=== PATIENT | male | born 1970 | race American Indian/Alaskan Native ===

== ENCOUNTER 2017-03-08 08:29 | Emergency (ER) | payer MEDICAID, OTHER ==
[2017-03-08 08:37] VITALS: BMI 24.3
[2017-03-08 08:38] VITALS: RESP 18
--- NOTE | 2017-03-08 09:09 | C.PDOC ---
History Of Present Illness 46-year-old male, denies significant PMHx, presents to the emergency department with complaints of penile injury. Patient states he sustained an injury to his penis at 12:00 this morning during sex. States "my partner landed on it funny." Patient immediately developed swelling and deformity to the penile shaft. He is currently complaining of persistent swelling on top and base. Denies hematuria, numbness, or any other associated symptoms. No other complaints at this time. Patient NPO since last night. PMD Zev Newsome MD. PENILE INJURY ONSET 1200. ONSET DURING SEX "MY PARTNER LANDED ON IT FUNNY", IMMEDIATELY HAD SWELLING AND DEFORMITY TO PENILE SHAFT. NOW W PERSIST SWELLING ON TOP AND BASE. NO HEMATURIA, OTHER ASSOC SX EXAM MILD DIST NONTOXIC ABD NEG CIRCUM +mod/SEVERE SWELLING DORSAL SHAFT, PENILE BASE. GLANS WNL. ?DEFORM DUE TO SWELL. NO DC, RASH. TEST EXAM WNL SKIN NO LESIONS MDM RO PENILE FX. NPO SINCE YESTERDAY Time Seen by Provider: 03/08/17 09:03 Chief Complaint (Nursing): Male Genitourinary History Per: Patient History/Exam Limitations: no limitations Onset/Duration Of Symptoms: Hrs Current Symptoms Are (Timing): Still Present Severity: Moderate Past Medical History Reviewed: Historical Data, Nursing Documentation, Vital Signs Vital Signs: Last Vital Signs Temp 98 F 03/08/17 12:29 Pulse 57 L 03/08/17 12:29 Resp 18 03/08/17 12:29 BP 128/67 03/08/17 12:29 Pulse Ox 98 03/09/17 08:23 - Medical History PMH: Pneumonia - [facility] Procedures THORACENTESIS (12/13/14) Family History: States: No Known Family Hx - Social History Hx Tobacco Use: No Hx Alcohol Use: Yes (Quit 3 weeks ago; Drank socially) Hx Substance Use: No - Immunization History Hx Tetanus Toxoid Vaccination: No Hx Influenza Vaccination: No Hx Pneumococcal Vaccination: No Review Of Systems Except As Marked, All Systems Reviewed And Found Negative. Constitutional: Negative for: Fever, Chills Gastrointestinal: Negative for: Abdominal Pain Genitourinary: Positive for: Penile Pain. Negative for: Hematuria Neurological: Negative for: Weakness, Numbness Physical Exam - Physical Exam Appears: Non-toxic, No Acute Distress (moderate distress) Skin: Warm, Dry, No Rash Eye(s): bilateral: Normal Inspection Nose: Normal Oral Mucosa: Moist Lips: Normal Appearing Neck: Normal ROM Chest: Symmetrical Gastrointestinal/Abdominal: Soft, No Tenderness Male Genital: Circumcised, Other (Circumcised, (+) Moderate-Severe swelling to dorsal shaft/penile base. Glans within normal limits. Questionable deformity due to swelling. No discharge or rashes appreciated. Testicular exam within normal limits.) Extremity: Normal ROM Neurological/Psych: Oriented x3, Normal Speech ED Course And Treatment - Laboratory Results Result Diagrams: 03/08/17 10:58 03/08/17 11:52 O2 Sat by Pulse Oximetry: 98 Progress - Continuity of Care Discussed pt. case with color consultant/specialty: Urology Medical Decision Making Medical Decision Making: Plan: * CMP * CBC * Urinalysis * Reassess and Disposition MDM RO PENILE FX. NPO SINCE YESTERDAY ED OBSERVATION Discharge: Yes Date of observation admission: 03/08/17 Time of observation admission: 09:00 - Observation admission statement Patient is being placed in observation because:: PENILE INJURY - Goals of Observation Goals of observation are:: RO PENILE FX; CLEAR - Progress Note Progress Note: 03/08/17 09:00 D/W DR COLLADO : ADVISES MRI 03/08/17 10:45 UNABLE TO GET MRI. DR COLLADO AWARE. DR Sheila MILTON TO CONSULT. PREOP LABS, MARCELINA STRATTON IN ER 03/08/17 13:14 P[address] OR [address] MILTON. APPEARS COMFORTABLE EXAM UNCH. 03/08/17 14:12 S/P EVAL DR MILTON, PT ADVISED TO HAVE O.R. PROCEDURE BUT PT REFUSING. MARCELINA BECKER , [facility] OFFICE. WRAP APPLIED BY DR MILTON Disposition Counseled Patient/Family Regarding: Studies Performed, Diagnosis, Need For Followup - Disposition Referrals: Jewel Milton MD [Staff Provider] - Disposition: HOME/ ROUTINE Disposition Time: 14:12 Condition: GOOD Additional Instructions: YOU HAVE BEEN ADVISED OF POTENTIAL CONCERN FOR PENILE FRACTURE AND HAVE BEEN OFFERED TREATMENT BY UROLOGIST. YOU HAVE REFUSED TREATMENT OFFERED BY DR MILTON. TAKES MOTRIN DIRECTED, FOLLOW UP WITH DR MILTON Forms: General Discharge Instructions, Work Excuse - POA Present On Arrival: Falls Or Trauma - Clinical Impression Clinical Impression: Penile swelling, Penis injury - PA / PLY BANDER / Resident Statement MD/DO has reviewed & agrees with the documentation as recorded. - Scribe Statement The provider has reviewed the documentation as recorded by the Scribe (Zhao Rainey) All medical record entries made by the Scribe were at my direction and personally dictated by me. I have reviewed the chart and agree that the record accurately reflects my personal performance of the history, physical exam, medical decision making, and the department course for this patient. I have also personally directed, reviewed, and agree with the discharge instructions and disposition. Decision To Admit - Pt Status Changed To: Hospital Disposition Of: SDS- Endo,OR,Cath,IR - . Bed Request Type: Regular Admitting Physician: Jewel Milton Patient Diagnosis: Penile swelling, Penis injury
[2017-03-08 11:03] LABS: BASO % 0.9 % (0.0-2.0); EOS # 0.1 K/uL (0.0-0.7); EOS % 1.8 % (0.0-4.0); LYMPH % 47.4 % (20.0-40.0); MEAN CELL VOLUME 92.1 fL (80.0-94.0); MEAN CORPUSCULAR HEMOGLOBIN 30.6 pg (27.0-31.0); MEAN CORPUSCULAR HGB CONC 33.2 g/dL (33.0-37.0); MEAN PLATELET VOLUME 11.9 fL (7.2-11.7); MONO # 0.4 K/uL (0.0-0.8); MONO % 8.4 % (0.0-10.0); NRBC % 0.2 % (0.0-2.0); RED CELL DISTRIBUTION WIDTH 13.7 % (11.5-14.5); WHITE BLOOD COUNT 4.2 K/uL (4.8-10.8)
[2017-03-08 12:23] LABS: CHLORIDE 103 mmol/L (98-107); SODIUM 135 mmol/L (132-148)
[2017-03-08 12:25] LABS: POTASSIUM 5.5 mmol/L (3.6-5.2)
[2017-03-08 12:26] LABS: ALB/GLOB RATIO 1.1 (1.0-2.1); ALKALINE PHOSPHATASE 53 U/L (38-126); ALT/SGPT 11 U/L (21-72); AST/SGOT 69 U/L (17-59); BILIRUBIN,TOTAL 1.4 mg/dL (0.2-1.3); BLOOD UREA NITROGEN 15 mg/dL (9-20); CARBON DIOXIDE 23 mmol/L (22-30); GFR AFRICAN-AMERICAN > 60; GLUCOSE,RANDOM 79 mg/dL (75-110); TOTAL PROTEIN 8.3 g/dL (6.3-8.3)
[2017-03-08 12:30] VITALS: BP 128/67; PULSE 57; TEMP 98
[2017-03-08 12:54] VITALS: O2SAT 98
== END 2017-03-08 14:21 | disposition home or self-care (01) ==
LOC: C.ER 08:29 → UNDOADMOB 09:00 → C.9OBSV 09:00 → C.SDS 13:15
DX: S39.94XA Unspecified injury of external genitals, initial encounter (principal); X58.XXXA Exposure to other specified factors, initial encounter; Y93.89 Activity, other specified; Y92.89 Other specified places as the place of occurrence of the external cause; N48.89 Other specified disorders of penis